=== PATIENT | female | born 1970 | race Caucasian/White ===

== ENCOUNTER → 2017-04-24 | Outpatient (REF) ==
[~2017-04-24] MED LIST: CALCIUM 500500 M2 PO; LEVAQUIN 750MG750 M1 PO; LEVOTHYROXINE PO; LEXAPRO 10MG10 MG PO; MULTIPLE VITAMI1 CAP PO; NORCO 325 MG-51 TAB PO; NORCO 325 MG-7.1 TAB PO; PENTASA; PRINIVIL10 MG PO; SYNTHROID 0.0.025 MG PO; VENTOLIN0.09 MG IH
== END ==
LOC: WSOH 12:45
DX: Z02.89 Encounter for other administrative examinations (principal)

== ENCOUNTER → 2017-06-15 | Outpatient (REF) | LOC: WSOH 17:45 | DX: Z02.89 Encounter for other administrative examinations (principal) ==

== ENCOUNTER → 2018-03-21 | Outpatient (CLI) | payer OTHER ==
[2018-03-21 09:37] LABS: BASO # 0.1 (0.0-0.2); BASO % 0.9 % (0.0-2.0); EOS # 0.2 (0.0-0.7); EOS % 3.3 % (0-4.0); GRAN # 3.6 (1.4-6.5); HEMATOCRIT 39.3 % (37.0-47.0); HEMOGLOBIN 12.9 g/dl (12.5-16.0); LYMPH # 1.6 (1.2-3.4); LYMPH % 28.2 % (20.0-51.0); MEAN CELL VOLUME 88 fl (80.0-100.0); MEAN CORPUSCULAR HEMOGLOBIN 29 pg (27.0-31.0); MEAN CORPUSCULAR HGB CONC 33 g/dl (33.0-37.0); MEAN PLATELET VOLUME 9.8 fl (7.4-10.4); MONO # 0.3 (0.1-0.6); MONO % 5.9 % (1.7-9.3); PLATELET COUNT 284 K/mm3 (130-400); RED BLOOD COUNT 4.46 M/mm3 (4.10-5.30); REDCELL DISTRIBUTION WIDTH-CV 12.8 % (11.5-14.5)
[2018-03-21 09:46] LABS: ALBUMIN 4.1 gm/dL (3.5-5.0); BILIRUBIN,TOTAL 0.4 mg/dL (0.0-1.0); CALCIUM 9.8 mg/dL (8.4-10.2); CHOLESTEROL RISK RATIO 5.2; CREATININE, serum 0.74 mg/dL (0.52-1.25); POTASSIUM 3.9 mmol/L (3.4-5.0); TOTAL PROTEIN 8.2 gm/dL (6.4-8.2)
[2018-03-21 11:50] LABS: COLLECTION METHOD CLEAN CATCH
[2018-03-21 11:58] LABS: MUCOUS Present /lpf; PH 6 (5-8); SQUAMOUS EPITHELIAL 0-2 /hpf; URINE APPEARANCE Clear; URINE BACTERIA None Seen /hpf; URINE BILIRUBIN Negative (NEGATIVE); URINE BLOOD Negative (NEGATIVE); URINE COLOR Yellow; URINE GLUCOSE Negative (NEGATIVE); URINE KETONE Negative (NEGATIVE); URINE LEUKOCYTE ESTERASE Negative (NEGATIVE); URINE NITRATE Negative (NEGATIVE); URINE PROTEIN(semi-quant) Negative (NEGATIVE); URINE RBC 0-2 /hpf; URINE UROBILINOGEN Negative (NEGATIVE); URINE WBC 0-2 /hpf
== END ==
LOC: COL.LAB 08:26
PROVIDERS: Internal Medicine
DX: Z00.00 Encounter for general adult medical examination without abnormal findings (principal)

== ENCOUNTER → 2022-03-29 | Outpatient (CLI) | payer OTHER | LOC: COL.LAB 14:52 | DX: E89.0 Postprocedural hypothyroidism (principal) ==

== ENCOUNTER 2023-09-17 11:12 | Day surgery (SDC) | payer OTHER ==
[~2023-09-17] VITALS: Ht 175.3 cm; Wt 129.7 kg
[~2023-09-17 11:12] MED LIST changes: -CALCIUM 500500 M2 PO; +DESYREL 50MG50 MG PO; +NORVASC 5MG5 MG/TAB PO; +OSCAL 500 TAB500 MG PO; -PRINIVIL10 MG PO; +PRINIVIL20 MG PO; +PRINIVIL40 MG PO; -SYNTHROID 0.0.025 MG PO; +SYNTHROID0.137 MG PO
[2023-09-17 11:33] VITALS: BP 142/91; PULSE 74; TEMP 97.2
--- NOTE | 2023-09-17 11:40 | NUR ---
PATENT AMBULATED TO BAY 8 WITH STEADY GAIT. ALERT AND ORIENTED X4. PATIENT STATED UNDERSTANDING OF PROCEDURE. CONSENTS SIGNED. ASSESSMENT COMPLETED. 20G IV STARTED IN RIGHT AC. LR INFUSING WITHOUT DIFFICUTLIES. NO FURTHER NEEDS NOTED. RESTING IN COT. CALL LIGHT IN REACH.
[2023-09-17] MEDS ORDERED: CEPHALEXIN500 M1 PO (15:02)
[2023-09-17] MEDS ORDERED: NORCO 325 MG-51 TAB PO (15:03)
[2023-09-17 15:30] VITALS: BP 143/89; PULSE 77; TEMP 97
--- NOTE | 2023-09-17 15:30 | NUR ---
PATIENT RETURNED TO BAY 8 VIA CART, ALERT AND AWAKE. RATES PAIN 3/10 TO LEFT KNEE, DENIES PAIN INTERVENTIONS. STATES SHE FELT "A LITTLE NAUSEOUS ON THE RIDE OVER". DENIES INTERVENTIONS FOR NAUSEA. DENIES FEELING SHORT OF BREATH. BREATHING REGULAR AND UNLABORED ON 1L VIA NASAL CANNULA. ENCOURAGED PATIENT TO DEEP BREATHE. NURSE HANDOFF COMPLETED IN ROOM. VISIBLE YURY WRAP TO LEFT KNEE. YURY WRAP CLEAN, DRY AND INTACT. LEFT KNEE ELEVATED WITH ICE PACK IN PLACE. SKIN WARM AND DRY. BILATERAL PEDAL PULSES 3+ REGULAR. BILATERAL POST TIBIAL PULSES 1+. SEE CHART FOR VITAL SIGNS. CALL LIGHT IN REACH. PATIENT DRANK WATER, NO DYSPHAGIA.
[2023-09-17 15:45] VITALS: BP 137/71; PULSE 77
[2023-09-17 16:00] VITALS: BP 129/70; PULSE 82
[2023-09-17 16:15] VITALS: BP 139/76; PULSE 81
--- NOTE | 2023-09-17 16:30 | NUR ---
1600: PATIENT HAD APPLESAUCE. 1610: DISCHARGE TEACHING COMPLETED WITH PRINTED EDUCATION AND INSTRUCTIONS SENT HOME WITH PATIENT. FOLLOW UP APPOINTMENT DATE, TIME AND LOCATION COMMUNICATED TO PATIENT. PATIENT VERBALIZED UNDERSTANDING OF INSTRUCTIONS. 1621: PATIENT REPORTED FEELING A LITTLE NAUSEOUS WITH INCREASING PAIN TO THE LEFT KNEE. NURSE DISCUSSED MEDICATIONS FOR PAIN AND NAUSEA ORDERED. PATIENT REQUESTED TO WAIT UNTIL CLOSER TO DISCHARGE TO BE GIVEN ZOFRAN. 1625: SEE EMAR FOR ROXICODONE GIVEN PER PATIENT REQUEST 1630: PATIENT AMBULATED WITH STEADY GAIT TO RESTROOM AND VOIDED. PATIENT AMBULATED BACK TO ROOM WITH STEADY GAIT.
[2023-09-17 16:48] VITALS: BP 126/87; PULSE 87
--- NOTE | 2023-09-17 17:00 | NUR ---
1640: PATIENT REQUESTED TO BE GIVEN ZOFRAN BEFORE BEING DISCHARGED. SEE EMAR FOR ZOFRAN ADMINISTERED. 1654: PATIENT REPORTED 7/10 PAIN TO THE LEFT KNEE (FOLLOWING AMBULATION) AND REQUESTED MOTRIN. SEE EMAR FOR MEDICATION GIVEN. 1655: IV REMOVED. GAUZE AND COBAN PLACED OVER SITE. 1700: PATIENT REPORTS IMPROVEMENT OF NAUSEA. TOLERABLE PAIN 3/10 TO LEFT KNEE. PATIENT SENT HOME WITH ICE PACK AND PERSONAL BELONGINGS. [facility] TRANSPORTED PATIENT HOME.
== END 2023-09-17 17:00 | disposition home or self-care (01) ==
LOC: SDCO 11:12
DX: S83.242A Other tear of medial meniscus, current injury, left knee, initial encounter (principal); M94.8X6 Other specified disorders of cartilage, lower leg; M17.12 Unilateral primary osteoarthritis, left knee; Z87.891 Personal history of nicotine dependence
CPT/HCPCS: J0665; J0690; J1100; J2405; J2704; J3010; J7120